=== PATIENT | male | born 1980 | race African-American/Black ===

== ENCOUNTER → 2016-05-23 | Outpatient (CLI) | payer OTHER ==
[~2016-05-23] VITALS: Ht 185.4 cm; Wt 150.6 kg
[~2016-05-23] MED LIST: HCTZ 25MG TAB25 MG PO; LIPITOR 80MG80 MG PO; PROCARDIA XL 6060 MG PO
[2016-05-23 09:44] VITALS: BP 161/101; PULSE 79
== END ==
LOC: COL.CARD 09:08
DX: I10 Essential (primary) hypertension (principal); E78.5 Hyperlipidemia, unspecified; R06.09 Other forms of dyspnea
CPT/HCPCS: A9502